=== PATIENT | male | born 1985 | race African-American/Black ===

== ENCOUNTER 2021-05-06 17:06 | Emergency (ER) | payer OTHER ==
[~2021-05-06] VITALS: Ht 180.3 cm; Wt 99.8 kg
[~2021-05-06 17:06] MED LIST: PHENADOZ25 MG RC; VALTREX1000 MG; ZOFRAN ODT4 MG PO
[2021-05-06] MEDS ORDERED: MOBIC7.5 MG PO (17:42)
[2021-05-06 17:58] VITALS: BP 130/87
== END 2021-05-06 17:58 | disposition home or self-care (01) ==
LOC: ER 17:06
DX: M77.8 Other enthesopathies, not elsewhere classified (principal); Z88.5 Allergy status to narcotic agent; Z88.8 Allergy status to other drugs, medicaments and biological substances